=== PATIENT | male | born 1955 | race Caucasian/White ===

== ENCOUNTER 2019-05-12 10:22 | Emergency (ER) | payer SELFPAY ==
[~2019-05-12] VITALS: Ht 170.2 cm; Wt 97.1 kg
[2019-05-12] MEDS ORDERED: ASPIRIN EC325 MG PO (10:40)
[2019-05-12] MEDS ORDERED: PRAVASTATIN SOD80 MG PO (10:40)
[2019-05-12] MEDS ORDERED: CELEXA40 MG PO (10:41)
[2019-05-12] MEDS ORDERED: CLONIDINE HCL0.1 M1 PO (10:41)
[2019-05-12] MEDS ORDERED: HYDROCHLOROTHIA25 MG PO (10:41)
[2019-05-12] MEDS ORDERED: ZESTRIL40 MG PO (10:42)
[2019-05-12] MEDS ORDERED: GLUCOPHAGE500 MG PO (10:42)
[2019-05-12] MEDS ORDERED: HYDRALAZINE HCL10 MG PO (10:42)
[2019-05-12] MEDS ORDERED: NORVASC10 MG PO (10:43)
[2019-05-12] MEDS ORDERED: PREDNISONE20 MG PO (11:28)
[2019-05-12] MEDS ORDERED: FAMCICLOVIR500 MG PO (11:28)
== END 2019-05-12 11:59 | disposition home or self-care (01) ==
LOC: ED 10:22
DX: G51.0 Bell's palsy (principal); Z79.899 Other long term (current) drug therapy; Z79.82 Long term (current) use of aspirin; Z79.84 Long term (current) use of oral hypoglycemic drugs
CPT/HCPCS: 70450; 99285-25